=== PATIENT | female | born 2000 | race Caucasian/White ===

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

== ENCOUNTER 2021-06-21 19:25 | Outpatient (REF) | payer BC, SELFPAY ==
[2021-06-23 15:43] LABS: Chlamydia Result Negative (Negative); GC Result Negative (Negative)
== END 2021-06-21 19:26 | disposition home or self-care (01) ==
LOC: LBN 19:25
PROVIDERS: PCP Nurse Practitioner Family; Visit Provider Family Medicine
DX: Z11.3 Encounter for screening for infections with a predominantly sexual mode of transmission (principal)
CPT/HCPCS: 87491; 87591

== ENCOUNTER 2021-09-19 14:39 | Outpatient (CLI) | payer BC, SELFPAY ==
[2021-09-19 15:34] LABS: D-Dimer 470 ng/mlFEU (<500)
== END 2021-09-19 14:40 | disposition home or self-care (01) ==
LOC: LBO 14:41
PROVIDERS: PCP Nurse Practitioner Family; Visit Provider Family Medicine
DX: R07.89 Other chest pain (principal)
CPT/HCPCS: 85379

== ENCOUNTER 2022-02-20 18:24 | Outpatient (REF) | payer BC, SELFPAY ==
[2022-02-21 14:52] LABS: COVID-19 RT-PCR UVMMC Result Negative (Negative)
== END 2022-02-20 18:25 | disposition home or self-care (01) ==
LOC: LBN 18:24
PROVIDERS: PCP Nurse Practitioner Family; Visit Provider Nurse Practitioner Family
DX: R09.89 Other specified symptoms and signs involving the circulatory and respiratory systems (principal); Z20.822 Contact with and (suspected) exposure to COVID-19
CPT/HCPCS: U0003

== ENCOUNTER 2022-02-21 16:39 | Outpatient (REF) | payer BC, SELFPAY ==
[2022-02-21 23:23] LABS: D-Dimer 4688 ng/mlFEU (<500)
== END 2022-02-21 16:40 | disposition home or self-care (01) ==
LOC: LBN 16:39
PROVIDERS: PCP Nurse Practitioner Family; Visit Provider Family Medicine
DX: R07.89 Other chest pain (principal)
CPT/HCPCS: 85379

== ENCOUNTER 2022-02-21 17:40 | Outpatient (CLI) | payer BC, SELFPAY ==
--- NOTE | 2022-02-21 | DI.RAD_ITS ---
Exam(s) XR CHEST 2V PA LATERAL EXAM: XR CHEST 2V PA LATERAL CLINICAL HISTORY: CHEST PAIN R07.9 CURRENT URI/COUGH TECHNIQUE: 2D digital imaging was performed of the chest. Two images were obtained. PA and lateral views were obtained. COMPARISON: CR CHEST 2 VIEWS PA,LAT from 07/16/2008 FINDINGS: MEDIASTINUM: Normal. HEART: Normal. PULMONARY VASCULATURE: Normal. LUNGS: Clear. PLEURAL SPACE: No pleural effusion or pneumothorax. BONE:Within normal limits for the patient's age. OTHER FINDINGS:Normal. IMPRESSION: No acute pulmonary findings. DATA REPOSITORY: RADIATION DOSE DELIVERED:
--- NOTE | 2022-02-21 17:32 | DI.VRAD_ITS ---
PROCEDURE INFORMATION: Exam: XR Chest Exam date and time: 02/21/2022 5:05 PM Age: 21 years old Clinical indication: Other: Chest pain current uri cough TECHNIQUE: Imaging protocol: Radiologic exam of the chest. Views: 2 views. COMPARISON: No relevant prior studies available. FINDINGS: Lungs: Unremarkable. No consolidation. Pleural spaces: Unremarkable. No pleural effusion. No pneumothorax. Heart/Mediastinum: Unremarkable. No cardiomegaly. Bones/joints: Unremarkable. IMPRESSION: No acute findings. Dictated and Authenticated by: Snow Talbert MD. Ordering:ALIA Steiner MD
== END 2022-02-21 18:00 ==
LOC: DI 17:42
PROVIDERS: PCP Nurse Practitioner Family; Visit Provider Family Medicine
DX: R07.9 Chest pain, unspecified (principal); R05.9 Cough, unspecified; J06.9 Acute upper respiratory infection, unspecified
CPT/HCPCS: 71046

== ENCOUNTER → 2022-02-22 16:14 | Outpatient (CLI) | payer BC, SELFPAY ==
--- NOTE | 2022-02-22 | DI.CT_ITS ---
Exam(s) CT CHEST PE CTA EXAM: CT CHEST PE CTA CLINICAL HISTORY: ATYPICAL CHEST AIN, R07.9, ELEVATED D DIMER, ON OCP.S,ACUTE CHEST WALL PAIN. TECHNIQUE: Imaging Protocol: Axial CT angiography was performed with multi-slice acquisition and mu lti-planar and/or 3D reconstructions. CONTRAST MATERIAL: Intravenous: Omnipaque 350 contrast volume:75 mL COMPARISON: CR,XR XR CHEST 2V PA LATERAL from 02/21/2022 FINDINGS: There is poor inspiration. The examination is limited due to patient motion artifact. Tracheobronchial tree: Patent where visualized. Pulmonary parenchyma: No consolidation or dominant measurable mass. No architectural distortion. Ther e is dependent atelectasis in the lung bases. Pulmonary Arteries: Examination is limited by patient motion artifact. This is compromising evaluatio n of the segmental and subsegmental pulmonary arteries. No large central pulmonary embolus is identif ied. Mediastinum and Rose: No dominant adenopathy or fluid collection. The esophagus is unremarkable. Visualized thyroid gland: Unremarkable. Pleura: No effusion or pneumothorax. Heart: The heart is not dilated. No coronary artery calcifications are seen. No pericardial effusion. Aorta: Thoracic aorta non-dilated. No evidence of dissection. Upper abdomen: Unremarkable. Soft tissues: Unremarkable. Bones: Within normal limits for the patient's age. IMPRESSION: 1. Examination compromised by poor inspiration and motion artifact. 2. No main or lobar pulmonary embolus is identified. There is suboptimal opacification/evaluation of the segmental and subsegmental pulmonary arteries secondary to patient motion and poor inspiration. RADIATION DOSE DELIVERED: 428.47mGy.cm Total DLP DATA REPOSITORY: All CT scans at this facility are submitted to the National Radiology Data Registry (NRDR) Dose Index Registry (DIR) with the [employer] ([employer]). RADIATION OPTIMIZATION: All CT scans at this facility use at least one of these dose optimization te chniques: automated exposure control; mA and/or kV adjustment per patient size (includes targeted exa ms where dose is matched to clinical indication); or iterative reconstruction.
[2022-02-22] MEDS: Omnipaque 350 MG/ML 100 ML BTL IJ (16:33)
--- NOTE | 2022-02-22 19:23 | DI.VRAD_ITS ---
PROCEDURE INFORMATION: Exam: CTA Chest With Contrast Exam date and time: 02/22/2022 4:21 PM Age: 21 years old Clinical indication: Other: Atypical chest ain, elevated d dimer, acute chest wall pain, om ocp. S TECHNIQUE: Imaging protocol: Computed tomographic angiography of the chest with contrast. 3D rendering (Not supervised by radiologist): MIP and/or 3D reconstructed images were created by the technologist. Contrast material: 350; Contrast volume: 75 ml; Contrast route: INTRAVENOUS (IV); COMPARISON: CR XR CHEST 2V PA LATERAL 02/21/2022 5:05 PM FINDINGS: Pulmonary arteries: No main or lobar pulmonary arterial embolism. Limited evaluation of the segmental branches. Aorta: No aortic aneurysm. Lungs: Unremarkable. No consolidation. No masses. Pleural spaces: Unremarkable. No pneumothorax. No pleural effusion. Heart: Unremarkable. No cardiomegaly. No pericardial effusion. Lymph nodes: Unremarkable. No enlarged lymph nodes. Bones/joints: Unremarkable. No acute fracture. Soft tissues: Unremarkable. Other findings: Images are degraded by patient respiratory motion artifact. IMPRESSION: No main or lobar pulmonary embolism. Dictated and Authenticated by: Thaddeus Reno MD. Ordering:AMY Mendes MD
== END ==
PROVIDERS: PCP Nurse Practitioner Family; Visit Provider Nurse Practitioner Family
DX: R07.89 Other chest pain (principal)
CPT/HCPCS: 71275; J3490

== ENCOUNTER 2025-04-19 19:11 | Outpatient (REF) | payer OTHER, SELFPAY ==
[2025-04-19 21:17] LABS: TSH (W/Ref FT4) 3.32 uIU/mL (0.36-3.74)
== END 2025-04-19 19:12 | disposition home or self-care (01) ==
LOC: NCHCN 19:11
PROVIDERS: PCP Nurse Practitioner Family; Visit Provider Nurse Practitioner Family
DX: Z83.49 Family history of other endocrine, nutritional and metabolic diseases (principal)
CPT/HCPCS: 84443